=== PATIENT | female | born 1950 | race African-American/Black ===

== ENCOUNTER → 2018-01-07 | Outpatient (CLI) | payer OTHER | LOC: M.ULTRA 12:29 | DX: I73.9 Peripheral vascular disease, unspecified (principal) ==

== ENCOUNTER → 2018-01-10 | Outpatient (CLI) | payer OTHER | LOC: M.RAD 01-04 16:24 | DX: Z12.31 Encounter for screening mammogram for malignant neoplasm of breast (principal); M81.0 Age-related osteoporosis without current pathological fracture; E11.9 Type 2 diabetes mellitus without complications; M19.91 Primary osteoarthritis, unspecified site; Z78.0 Asymptomatic menopausal state ==

== ENCOUNTER → 2020-02-27 | Outpatient (CLI) | payer OTHER | LOC: M.ULTRA 11:24 | PROVIDERS: ATTEND Family Medicine | DX: E01.0 Iodine-deficiency related diffuse (endemic) goiter (principal) ==

== ENCOUNTER → 2020-03-12 | Outpatient (CLI) | payer OTHER ==
--- NOTE | 2020-03-16 07:08 | PATH ---
[address] [address] PATHOLOGY RPT PROCEDURE Name: JACOBO SANCHES Room: [facility]#: [id number] Admission: 03/12/20 Date of : 48 Discharge: Report #: [id number] Path Case #: [id number] Note [facility] Accession Number: [id number] TESTS RESULT FLAG UNITS REF RANGE LAB Clinician Provided Cytology Information No. of containers..01 Other (Miscellaneous) Source: LT INFERIOR THYROID DIAGNOSIS: LT INFERIOR THYROID NEGATIVE FOR MALIGNANT CELLS. B[place] CATEGORY II. SPECIMEN CONSISTS OF BENIGN FOLLICULAR CELLS, HEMOSIDERIN-LADEN MACROPHAGES, COLLOID, AND BLOOD CONSISTENT WITH A COLLOID NODULE, WITH FEW MULTINUCLEATED CELLS SUGGESTING GRANULOMATOUS (SUBACUTE) THYROIDITIS. THIS INTERPRETATION INCLUDES EVALUATION OF A CELL BLOCK. Pathologist ICD10: 02 E04.1, E06.1 Signed out by: 02 Shar Wheeler MD, Pathologist NPI- [id number] Performed by: Haylee Morales, Service Crew Supervisor ([facility]) Gross description: 01 20ML, CLEAR RED, 4FX 4AD /LCS 03/12/2020 1701 Local FLAG LEGEND: L-Low Normal,H-High Normal,LL-Alert Low,HH-Alert High <-Panic Low,>-Panic High,A-Abnormal,AA-Critical Abnormal Performed at: [address] [place] [address] Omar Young MD, [address] [place] [address] [address] [place] [address] Shar Wheeler MD, Specimen Comment: A courtesy copy of this report has been sent to [phone] Specimen Comment: [id number] Specimen Comment: Report sent to DR DE PAZ / DR BARRIOS Performed at: [address], [place], [place] [id number] MD Omar Young MD Phone: [phone]
--- NOTE | 2020-03-16 07:08 | PATH ---
[address] [address] PATHOLOGY RPT PROCEDURE Name: JACOBO SANCHES Room: [facility]#: [id number] Admission: 03/12/20 Date of : 48 Discharge: Report #: [id number] Path Case #: [id number] Note [facility] Accession Number: [id number] TESTS RESULT FLAG UNITS REF RANGE LAB Clinician Provided Cytology Information No. of containers..01 Other (Miscellaneous) Source: LT SUPERIOR THYROID DIAGNOSIS: LT SUPERIOR THYROID NEGATIVE FOR MALIGNANT CELLS. B[place]ES[place] CATEGORY II. SPECIMEN CONSISTS OF BENIGN FOLLICULAR CELLS, HEMOSIDERIN-LADEN MACROPHAGES, COLLOID, AND BLOOD. THIS PATTERN IS CONSISTENT WITH A COLLOID NODULE. THIS INTERPRETATION INCLUDES EVALUATION OF A CELL BLOCK. Pathologist ICD10: 02 E04.1 Signed out by: 02 Shar Wheeler MD, Pathologist NPI- [id number] Performed by: 01 Corine Morales, Structural Steel Fitter ([facility]) Gross description: 01 20ML, CLEAR RED, 4FX 4AD /LCS 03/12/2020 1659 Local FLAG LEGEND: L-Low Normal,H-High Normal,LL-Alert Low,HH-Alert High <-Panic Low,>-Panic High,A-Abnormal,AA-Critical Abnormal Performed at: [address] [place] [address] Omar Young MD, [address] [place] [address] [facility], [place] [address] Shar Wheeler MD, Specimen Comment: A courtesy copy of this report has been sent to [phone] Specimen Comment: [id number] Specimen Comment: [id number] Specimen Comment: Report sent to DR DE PAZ / DR BARRIOS Performed at: [address], [place], [place] [id number] MD Omar Young MD Phone: [phone]
== END | disposition home or self-care (01) ==
LOC: M.ULTRA 08:02
PROVIDERS: ATTEND Family Medicine
DX: E04.1 Nontoxic single thyroid nodule (principal); E06.1 Subacute thyroiditis; I10 Essential (primary) hypertension; E78.5 Hyperlipidemia, unspecified; M19.90 Unspecified osteoarthritis, unspecified site; E88.81 Metabolic syndrome and other insulin resistance; E66.9 Obesity, unspecified; Z79.82 Long term (current) use of aspirin; Z79.899 Other long term (current) drug therapy; Z79.84 Long term (current) use of oral hypoglycemic drugs; Z98.890 Other specified postprocedural states

== ENCOUNTER → 2020-03-23 | Outpatient (CLI) | payer OTHER | LOC: M.RAD 06:46 | PROVIDERS: ATTEND Family Medicine | DX: Z12.31 Encounter for screening mammogram for malignant neoplasm of breast (principal) ==